=== PATIENT | male | born 1985 | race Caucasian/White ===

== ENCOUNTER 2024-10-25 09:30 | Day surgery (SDC) | payer BC, SELFPAY ==
[2024-10-22 15:10] VITALS: BMI 22.4
[2024-10-25] VITALS (10 sets, daily range): BP systolic 127–161; BP diastolic 88–117; PULSE 84–99; RESP 9–20; TEMP 36.2–36.9; O2SAT 95–100; BMI 23.9
[2024-10-25] MEDS: MIDAZOLAM INJ 1 MG/ML VIAL 2 ML (ASD USE ONLY) 2 MG IV (11:42)
[2024-10-25] MEDS: DiphenhydrAMINE INJ 50 MG/ML VIAL 25 MG IV (11:43)
[2024-10-25] MEDS: fentaNYL CIT INJ 50 mCg/ML AMP 2ML (ASD USE ONLY) IV (11:43)
[2024-10-25] MEDS: MEPERIDINE INJ 25 MG/ML VIAL (ASD USE ONLY) 50 MG IV (11:43)
== END 2024-10-25 12:44 | disposition home or self-care (01) ==
PROVIDERS: PCP Internal Medicine Cardiovascular Disease; Referring Provider Specialist; Visit Provider Specialist
PROC: (CPT 43239; principal; 2024-10-25 11:30)
DX: K22.2 Esophageal obstruction (principal); K22.11 Ulcer of esophagus with bleeding; K29.71 Gastritis, unspecified, with bleeding; K29.51 Unspecified chronic gastritis with bleeding; K31.89 Other diseases of stomach and duodenum
CPT/HCPCS: 43248; 43239; A4649; C1769; J1200; J2175; J2250; J3010